=== PATIENT | female | born 1945 | race Caucasian/White ===

== ENCOUNTER → 2017-06-08 | Outpatient (CLI) | payer MEDICARE, MEDICAID ==
[~2017-06-08] MED LIST: ATEN50TA PO; ATOR20TA65 PO; CYAN100053 IJ; LEVO100T9 PO; METF500T4 PO; OMEP40CA34 PO; PANT40TA4 PO; PARO30TA62 PO; PRED5TAB48 PO; SUCR1ORA PO; TOBRDO OP
== END | disposition home or self-care (01) ==
LOC: MAMMO 10:33
PROVIDERS: ATTEND Specialist
DX: Z12.31 Encounter for screening mammogram for malignant neoplasm of breast (principal)
CPT/HCPCS: 77067

== ENCOUNTER 2021-08-16 21:39 | Inpatient (IN) | payer MEDICARE, MEDICAID ==
[~2021-08-16] VITALS: Ht 152.4 cm; Wt 79.8 kg
[~2021-08-16 21:39] MED LIST changes: +METF-414 PO; -METF500T4 PO; +OMEP40CA20 PO; -OMEP40CA34 PO; -PANT40TA4 PO; +PANT40TA51 PO
[2021-08-16] MEDS ORDERED: SODIUM CHLORIDE 0.9% 1,000 ML IV ONE (23:15)
[2021-08-16] MEDS ORDERED: KETOROLAC 15MG/ML VIAL IV ONE (23:15)
[2021-08-16 23:37] LABS: BASOPHILS % 0.9 % (0.0-2.0); EOSINOPHILS % 1.8 % (0.0-5.0); HEMATOCRIT. 32.2 % (36.0-48.0); MEAN CORPUSCULAR HEMOGLOBIN 24.9 pg (28.0-32.0); MEAN PLATELET VOLUME 8.9 fl (7.4-10.4); MONOCYTES % 6.5 % (2.0-8.0); NEUTROPHILS % 72.8 % (40.0-76.0); PLATELET 273 x1000/uL (130-400); RED BLOOD CELL COUNT 4.03 mill/uL (4.2-5.4); RED CELL DISTRIBUTION WIDTH 16.6 % (11.6-14.6)
[2021-08-16 23:47] LABS: CHLORIDE 105 mEq/L (98-107)
[2021-08-17] MEDS ORDERED: DIPHENHYDRAMINE 50MG/ML VIAL IV PRN (07:30)
[2021-08-17] MEDS ORDERED: ONDANSETRON HCL 4MG/2ML INJ IV PRN (07:30)
[2021-08-17] MEDS ORDERED: GUAIFENESIN 200MG/10ML SUGAR FREE UDC PO PRN (07:30)
[2021-08-17] MEDS ORDERED: LORAZEPAM 2MG/ML CPJ IV PRN (07:30)
[2021-08-17] MEDS ORDERED: IPRATROPIUM/ALBUTEROL 0.5-3(2.5)MG/3ML NEB HHN PRN (07:30)
[2021-08-17] MEDS ORDERED: DOCUSATE SODIUM 100MG CAPSULE PO PRN (07:30)
[2021-08-17] MEDS ORDERED: MAGNESIUM/ALUMINUM HYDROXIDE/SIMETHICONE 30ML UDC PO PRN (07:30)
[2021-08-17] MEDS ORDERED: DEXTROSE 50% WATER 50ML SYRINGE IV PRN (07:30)
[2021-08-17] MEDS ORDERED: NALOXONE HCL 0.4MG/ML VIAL IV PRN (08:00)
[2021-08-17] MEDS: INSULIN LISPRO 100 UNITS/ML SUBCUT SCH ×4 (08:20→21:00)
[2021-08-17] MEDS: ENOXAPARIN 40MG/0.4ML SYR SUBCUT SCH (09:04)
[2021-08-17] MEDS: BLOOD SUGAR DIAGNOSTIC STRIP TEST SCH ×4 (09:05→21:00)
[2021-08-17 09:32] LABS: *AMPHETAMINES SCREEN URINE NEGATIVE (NEGATIVE); *BARBITURATES SCREEN URINE NEGATIVE (NEGATIVE); *BENZODIAZEPINES SCREEN URINE NEGATIVE (NEGATIVE); *COCAINE SCREEN URINE NEGATIVE (NEGATIVE); CANNABINOID URINE SCREEN NEGATIVE (NEGATIVE); METHADONE URINE SCREEN NEGATIVE (NEGATIVE); OPIATES URINE SCREEN NEGATIVE (NEGATIVE); PHENCYCLIDINE URINE SCREEN NEGATIVE (NEGATIVE)
[2021-08-17 09:50] VITALS: BP 160/43
[2021-08-17 10:10] LABS: CLARITY URINE CLEAR (CLEAR); COLOR URINE YELLOW (YELLOW); PROTEIN URINE 1+ (NEGATIVE)
[2021-08-17 10:11] LABS: KETONES URINE NEGATIVE (NEGATIVE); LEUKOCYTE ESTERASE URINE NEGATIVE (NEGATIVE); NITRITE URINE NEGATIVE (NEGATIVE); OCCULT BLOOD URINE NEGATIVE (NEGATIVE); UROBILINOGEN URINE 0.2 E.U./dL (0.2-1.0)
[2021-08-17] MEDS: HYDROCODONE/ACETAMINOPHEN 5/325MG TABLET PO PRN ×2 (10:12→20:30)
[2021-08-17] MEDS: HYDRALAZINE 20MG/ML VIAL IV PRN (10:13)
[2021-08-17 12:00] VITALS: BP 161/53
[2021-08-17] MEDS: CLONIDINE 0.1MG TABLET PO PRN ×2 (12:44→18:48)
[2021-08-17 13:15] VITALS: BP 160/43
[2021-08-17] MEDS: MORPHINE SULFATE 2 MG/ML CPJ (NOT FOR IM USE) IV PRN (13:51)
[2021-08-17] MEDS ORDERED: FERR325T6 PO (14:37)
[2021-08-17] MEDS ORDERED: CHOL400D7 PO (14:37)
[2021-08-17] MEDS ORDERED: GABA-532 PO (14:37)
[2021-08-17] MEDS: SODIUM CHLORIDE 0.9% INJ 3ML FLUSH IVF SCH ×2 (14:39→22:41)
[2021-08-17 16:00] VITALS: BP 157/45
[2021-08-17 20:00] VITALS: BP 148/68
[2021-08-18] VITALS: BP 142/72
[2021-08-18] MEDS: HYDROCODONE/ACETAMINOPHEN 5/325MG TABLET PO PRN ×2 (01:03→04:27)
[2021-08-18 07:14] LABS: BASOPHILS % 0.9 % (0.0-2.0); EOSINOPHILS % 1.7 % (0.0-5.0); HEMOGLOBIN. 9.6 g/dL (12.0-16.0); LYMPHOCYTES % 16.5 % (20.0-50.0); MEAN CORPUSCULAR HEMOGLOBIN 25.3 pg (28.0-32.0); MEAN CORPUSCULAR VOLUME 79.6 fL (81.0-99.0); MEAN PLATELET VOLUME 9.5 fl (7.4-10.4); MONOCYTES % 6.2 % (2.0-8.0); NEUTROPHILS % 74.7 % (40.0-76.0); PLATELET 257 x1000/uL (130-400); RED BLOOD CELL COUNT 3.77 mill/uL (4.2-5.4); RED CELL DISTRIBUTION WIDTH 16.5 % (11.6-14.6)
[2021-08-18 07:17] LABS: CHLORIDE 105 mEq/L (98-107)
[2021-08-18] MEDS: BLOOD SUGAR DIAGNOSTIC STRIP TEST SCH ×4 (07:20→21:41)
[2021-08-18 07:44] LABS: VITAMIN B12 SERUM 411 pg/mL (211-911)
[2021-08-18] MEDS: INSULIN LISPRO 100 UNITS/ML SUBCUT SCH ×4 (07:44→21:00)
[2021-08-18 08:02] VITALS: BP 159/41
[2021-08-18] MEDS: ENOXAPARIN 40MG/0.4ML SYR SUBCUT SCH (08:28)
[2021-08-18] MEDS: MORPHINE SULFATE 2 MG/ML CPJ (NOT FOR IM USE) IV PRN ×2 (09:18→16:02)
[2021-08-18] MEDS: CLONIDINE 0.1MG TABLET PO PRN ×2 (10:50→18:23)
[2021-08-18] MEDS ORDERED: METFORMIN HCL 500MG TABLET PO PRN (12:00)
[2021-08-18 12:30] VITALS: BP 154/49
[2021-08-18] MEDS: ACETAMINOPHEN 325MG TABLET PO PRN (14:11)
[2021-08-18] MEDS: SODIUM CHLORIDE 0.9% INJ 3ML FLUSH IVF SCH ×2 (14:11→22:00)
[2021-08-18] MEDS: SODIUM CHLORIDE 0.45% 1,000 ML IV SCH (14:11)
[2021-08-18 16:20] VITALS: BP 172/56
[2021-08-18] MEDS ORDERED: HYDROCODONE/ACETAMINOPHEN 10/325MG TABLET PO PRN (17:15)
[2021-08-18] MEDS ORDERED: NALOXONE HCL 0.4MG/ML VIAL IV PRN (17:30)
[2021-08-18] MEDS: METFORMIN HCL 500MG TABLET PO SCH (18:22)
[2021-08-18 20:00] VITALS: BP 149/56
[2021-08-18] MEDS ORDERED: LORAZEPAM 2MG/ML CPJ IV NR (20:30)
[2021-08-18] MEDS: PAROXETINE HCL 10MG TABLET PO SCH (21:42)
[2021-08-19] VITALS (7 sets, daily range): BP systolic 148–182; BP diastolic 53–70
[2021-08-19] MEDS: MORPHINE SULFATE 2 MG/ML CPJ (NOT FOR IM USE) IV PRN ×3 (04:35→20:52)
[2021-08-19] MEDS: SODIUM CHLORIDE 0.45% 1,000 ML IV SCH (04:36)
[2021-08-19] MEDS: SODIUM CHLORIDE 0.9% INJ 3ML FLUSH IVF SCH ×3 (04:36→21:36)
[2021-08-19] MEDS: INSULIN LISPRO 100 UNITS/ML SUBCUT SCH ×4 (06:29→20:58)
[2021-08-19] MEDS: BLOOD SUGAR DIAGNOSTIC STRIP TEST SCH ×4 (06:29→20:57)
[2021-08-19] MEDS ORDERED: LEVOTHYROXINE SODIUM 100MCG TABLET PO SCH (07:20)
[2021-08-19] MEDS ORDERED: ATENOLOL 50 MG TABLET PO SCH (09:00)
[2021-08-19] MEDS ORDERED: PANTOPRAZOLE 40MG DR TABLET PO SCH (09:00)
[2021-08-19] MEDS: METFORMIN HCL 500MG TABLET PO SCH ×2 (10:22→17:00)
[2021-08-19] MEDS: ENOXAPARIN 40MG/0.4ML SYR SUBCUT SCH (10:22)
[2021-08-19] MEDS: ACETAMINOPHEN 325MG TABLET PO PRN (10:23)
[2021-08-19 12:39] LABS: BASOPHILS % 0.8 % (0.0-2.0); EOSINOPHILS % 1.5 % (0.0-5.0); HEMATOCRIT. 29.9 % (36.0-48.0); HEMOGLOBIN. 9.3 g/dL (12.0-16.0); LYMPHOCYTES % 18.2 % (20.0-50.0); MEAN CORPUSCULAR HEMOGLOBIN 25.1 pg (28.0-32.0); MEAN CORPUSCULAR VOLUME 80.3 fL (81.0-99.0); MEAN PLATELET VOLUME 8.6 fl (7.4-10.4); MONOCYTES % 5.4 % (2.0-8.0); NEUTROPHILS % 74.1 % (40.0-76.0); PLATELET 253 x1000/uL (130-400); RED BLOOD CELL COUNT 3.72 mill/uL (4.2-5.4); RED CELL DISTRIBUTION WIDTH 16.1 % (11.6-14.6)
[2021-08-19 12:46] LABS: CHLORIDE 103 mEq/L (98-107)
[2021-08-19] MEDS ORDERED: LIDOCAINE 5% PATCH TOP SCH (13:00)
[2021-08-19] MEDS ORDERED: LORAZEPAM 2MG/ML CPJ IV PRN (15:30)
[2021-08-19] MEDS: CLONIDINE 0.1MG TABLET PO PRN (20:58)
[2021-08-19] MEDS: PAROXETINE HCL 10MG TABLET PO SCH (20:58)
[2021-08-19] MEDS: HYDRALAZINE 20MG/ML VIAL IV PRN (21:27)
== END 2021-08-19 22:00 | disposition home health service (06) | DRG 92 ==
LOC: ER 21:39 → 6WST 08-17 04:09 → ENRESERV 08-17 07:18
PROVIDERS: ADMIT Internal Medicine; ATTEND Internal Medicine
PROC: 4A10X4Z Monitoring of Central Nervous Electrical Activity, External Approach (ICD-10-PCS; principal; 2021-08-19)
DX: G92.8 Other toxic encephalopathy (principal); E46 Unspecified protein-calorie malnutrition; I50.40 Unspecified combined systolic (congestive) and diastolic (congestive) heart failure; M17.0 Bilateral primary osteoarthritis of knee; I25.10 Atherosclerotic heart disease of native coronary artery without angina pectoris; R53.81 Other malaise; E11.9 Type 2 diabetes mellitus without complications; E66.01 Morbid (severe) obesity due to excess calories; E78.00 Pure hypercholesterolemia, unspecified; E78.5 Hyperlipidemia, unspecified; F32.A Depression, unspecified; I45.10 Unspecified right bundle-branch block; G90.8 Other disorders of autonomic nervous system; R26.89 Other abnormalities of gait and mobility; M21.169 Varus deformity, not elsewhere classified, unspecified knee; F41.9 Anxiety disorder, unspecified; I11.0 Hypertensive heart disease with heart failure; J45.909 Unspecified asthma, uncomplicated; Z79.899 Other long term (current) drug therapy; Z68.34 Body mass index [BMI] 34.0-34.9, adult; Z79.84 Long term (current) use of oral hypoglycemic drugs
CPT/HCPCS: 36415; 71045; 80048; 80053; 80305; 81003; 82607; 82962; 83605; 83880; 84443; 84484; 85025; 93005; 93306; 93970; 95816; 97162; 99285; J0360; J1650; J1815; J1885; J2060; J2270; J7030